=== PATIENT | male | born 1935 | race Caucasian/White ===

== ENCOUNTER → 2016-10-26 | Outpatient (CLI) | payer OTHER ==
[~2016-10-26] MED LIST: ASPI-496 PO; CLOP75TA PO; EMPA10TA PO; GEMF600T3 PO; LISI40TA PO; METF500T4 PO; REGADENOSON 0.4 MG/5 ML SYRINGE ONE; RIVA15TA PO
== END | disposition home or self-care (01) ==
LOC: CFH 08:12
PROVIDERS: ATTEND Internal Medicine Cardiovascular Disease
DX: I48.91 Unspecified atrial fibrillation (principal); I25.10 Atherosclerotic heart disease of native coronary artery without angina pectoris; I10 Essential (primary) hypertension; I45.10 Unspecified right bundle-branch block
CPT/HCPCS: 78452; 93017; A9502; J2785

== ENCOUNTER 2016-10-29 08:28 | Day surgery (SDC) | payer OTHER ==
[2016-10-28 11:05] VITALS: BP 155/89
[2016-10-28 11:20] LABS: HEMATOCRIT 46.4 % (39.2-51.8); HEMOGLOBIN 15.6 g/dL (13.7-18.0); WHITE BLOOD COUNT 4.8 x10^3/uL (3.4-10)
[2016-10-28 12:47] LABS: BLOOD UREA NITROGEN 19 mg/dL (7-18)
[~2016-10-29] VITALS: Ht 175.3 cm; Wt 98.6 kg
[~2016-10-29 08:28] MED LIST changes: -REGADENOSON 0.4 MG/5 ML SYRINGE ONE
[2016-10-29] MEDS ORDERED: FENTANYL PF 100 MCG/2ML ONE (10:48)
[2016-10-29] MEDS ORDERED: MIDAZOLAM 1 MG/ML, 5ML ONE (10:48)
[2016-10-29] MEDS ORDERED: VERAPAMIL 2.5 MG/ML, 2ML ONE (10:49)
[2016-10-29] MEDS ORDERED: BIVALIRUDIN 250 MG ONE (10:49)
[2016-10-29] MEDS ORDERED: LIDOCAINE 2%, 20ML ONE (10:50)
[2016-10-29] MEDS ORDERED: HEPARIN 1,000 UNITS/ML, 10ML ONE (11:24)
[2016-10-29] MEDS ORDERED: ISOS60TA36 PO (12:29)
[2016-10-29] MEDS ORDERED: NITR0.4T28 SL (12:47)
[2016-10-29] MEDS ORDERED: SODIUM CHLORIDE 0.9% 1,000 ML IV SCH (13:00)
== END 2016-10-29 15:19 | disposition home or self-care (01) ==
LOC: CACL 08:28
PROVIDERS: ATTEND Internal Medicine Cardiovascular Disease
DX: I25.10 Atherosclerotic heart disease of native coronary artery without angina pectoris (principal); I25.82 Chronic total occlusion of coronary artery; I10 Essential (primary) hypertension; I73.9 Peripheral vascular disease, unspecified; I48.91 Unspecified atrial fibrillation; E11.9 Type 2 diabetes mellitus without complications; E78.5 Hyperlipidemia, unspecified; Z79.01 Long term (current) use of anticoagulants; Z80.0 Family history of malignant neoplasm of digestive organs; Z87.891 Personal history of nicotine dependence
CPT/HCPCS: 36415; 80048; 85025; 93458; 99156; 99157; C1894; J1644; J2250; J3010; J3490; Q9967; J0583

== ENCOUNTER 2016-12-03 18:18 | Inpatient (IN) | payer OTHER ==
[~2016-12-03] VITALS: Ht 175.3 cm; Wt 97.6 kg
[~2016-12-03 18:18] MED LIST changes: +ISOS60TA36 PO; +NITR0.4T28 SL
[2016-12-03] MEDS ORDERED: SODIUM CHLORIDE FLUSH 10ML SYR IVF ONE (19:00)
[2016-12-03] MEDS ORDERED: SODIUM CHLORIDE 0.9% 1,000ML IVBOLUS ONE ×2 (19:30→20:00)
[2016-12-03 19:33] LABS: HEMATOCRIT 46.6 % (39.2-51.8); HEMOGLOBIN 15.6 g/dL (13.7-18.0); WHITE BLOOD COUNT 11.4 x10^3/uL (3.4-10)
[2016-12-03 19:43] LABS: BLOOD UREA NITROGEN 20 mg/dL (7-18)
[2016-12-03] MEDS ORDERED: ACETAMINOPHEN 500 MG TABLET ONE (19:47)
[2016-12-03 19:49] LABS: IS PT STATUS REG ER OR PRE ER? YES
[2016-12-03] MEDS ORDERED: ACETAMINOPHEN 500 MG TABLET PO ONE (20:00)
[2016-12-03] MEDS ORDERED: DILTIAZEM 5 MG/ML, 5ML IV ONE (20:30)
[2016-12-03 20:50] LABS: PATH.CAST-FLAG NOT PRESENT; SPERM-FLAG NOT PRESENT; SRC-FLAG NOT PRESENT; XTAL-FLAG NOT PRESENT; YLC-FLAG NOT PRESENT
[2016-12-03] MEDS ORDERED: CEFTRIAXONE PMX 1GM/50ML 50 ML ONE (21:07)
[2016-12-03] MEDS ORDERED: SODIUM CHLORIDE 0.9% 1,000 ML IV SCH (21:24)
[2016-12-03] MEDS ORDERED: DEXTROSE 4 GM TAB.CHEW PO PRN (21:30)
[2016-12-03] MEDS ORDERED: GLUCAGON 1 MG IM PRN (21:30)
[2016-12-03] MEDS ORDERED: CEFTRIAXONE PMX 1GM/50ML 50 ML IVPB ONE (21:30)
[2016-12-03] MEDS ORDERED: ACETAMINOPHEN 325 MG TABLET PO PRN (21:30)
[2016-12-03] MEDS ORDERED: ONDANSETRON 2MG/ML, 2ML IVPush PRN (21:30)
[2016-12-03] MEDS ORDERED: SODIUM CHLORIDE FLUSH 10ML SYR IVF PRN (21:30)
[2016-12-03] MEDS ORDERED: NITROGLYCERIN 0.4 MG BOTTLE (25 TABS) SL PRN (21:30)
[2016-12-03] MEDS ORDERED: DEXTROSE 50%, 50ML SYRINGE IVPush PRN (21:30)
[2016-12-03] MEDS ORDERED: LABETALOL 5MG/ML, 20ML IVPush PRN (21:30)
[2016-12-03 22:38] VITALS: BP 136/70
[2016-12-03] MEDS: XARELTO MC SCH (23:30)
[2016-12-04] VITALS (7 sets, daily range): BP systolic 99–175; BP diastolic 42–94
[2016-12-04] MEDS: XARELTO MC SCH (00:04)
[2016-12-04 00:30] LABS: IS PT STATUS REG ER OR PRE ER? NO
[2016-12-04] MEDS: DILTIAZEM 5 MG/ML, 5ML IVPush PRN ×2 (03:02→06:30)
[2016-12-04] MEDS: ASPIRIN 325 MG TABLET EC PO SCH (04:52)
[2016-12-04 05:46] LABS: IS PT STATUS REG ER OR PRE ER? NO
[2016-12-04] MEDS ORDERED: metFORMIN 500 MG TABLET PO SCH (09:00)
[2016-12-04] MEDS: GEMFIBROZIL 600 MG TABLET PO SCH ×2 (10:11→19:43)
[2016-12-04] MEDS: ISOSORBIDE MONONITRATE ER 60 MG TABLET PO SCH (10:11)
[2016-12-04] MEDS: LISINOPRIL 20 MG TABLET PO SCH (10:12)
[2016-12-04] MEDS: CLOPIDOGREL 75 MG TABLET PO SCH (10:12)
[2016-12-04] MEDS: RIVAROXABAN 15 MG TABLET PO SCH (10:14)
[2016-12-04] MEDS: SODIUM CHLORIDE FLUSH 10ML SYR IVF SCH ×2 (10:15→19:43)
[2016-12-04] MEDS ORDERED: DILTIAZEM 5 MG/ML, 5ML IVPush PRN (16:30)
[2016-12-04] MEDS ORDERED: CEFTAROLINE 600 MG in SODIUM CHLORIDE 0.9% 100 ML IV SCH (16:30)
[2016-12-04] MEDS ORDERED: PHARMACOKINETIC CONSULTATION MC ONE (17:00)
[2016-12-04] MEDS ORDERED: VANCOMYCIN PER PHARMACY MC PRN (17:00)
[2016-12-04] MEDS ORDERED: VANCOMYCIN PMX 1GM/200ML 200 ML IV ONE (17:00)
[2016-12-04] MEDS ORDERED: PHARMACOKINETIC MONITORING MC PRN (17:00)
[2016-12-04] MEDS: ERTAPENEM 1 GM in SODIUM CHLORIDE 0.9% 50 ML IV SCH (18:07)
[2016-12-04] MEDS: METOPROLOL TARTRATE 25 MG TABLET PO SCH (18:10)
[2016-12-04] MEDS: VANCOMYCIN 1,900 MG in SODIUM CHLORIDE 0.9% 250 ML IV SCH (19:10)
[2016-12-04] MEDS: morphine SULFATE 10 MG/ML, 1ML IVPush PRN (19:46)
[2016-12-04] MEDS: INSULIN ASPART 100 UNITS/ML, PEN SQ-INSULIN SCH (19:49)
[2016-12-05 02:00] VITALS: BP 117/67
[2016-12-05 04:03] VITALS: BP 117/67
[2016-12-05 04:46] LABS: HEMATOCRIT 36.7 % (39.2-51.8); HEMOGLOBIN 12.2 g/dL (13.7-18.0); WHITE BLOOD COUNT 8.3 x10^3/uL (3.4-10)
[2016-12-05 04:57] LABS: BLOOD UREA NITROGEN 20 mg/dL (7-18)
[2016-12-05 05:01] LABS: IS PT STATUS REG ER OR PRE ER? NO
[2016-12-05] MEDS: ASPIRIN 325 MG TABLET EC PO SCH (05:21)
[2016-12-05] MEDS: METOPROLOL TARTRATE 25 MG TABLET PO SCH ×2 (05:22→17:03)
[2016-12-05] MEDS: INSULIN ASPART 100 UNITS/ML, PEN SQ-INSULIN SCH ×4 (07:00→20:49)
[2016-12-05] MEDS: RIVAROXABAN 15 MG TABLET PO SCH (07:57)
[2016-12-05] MEDS: LISINOPRIL 20 MG TABLET PO SCH (07:57)
[2016-12-05] MEDS: GEMFIBROZIL 600 MG TABLET PO SCH ×2 (07:57→20:48)
[2016-12-05] MEDS: ISOSORBIDE MONONITRATE ER 60 MG TABLET PO SCH (07:58)
[2016-12-05] MEDS: CLOPIDOGREL 75 MG TABLET PO SCH (07:58)
[2016-12-05] MEDS: SODIUM CHLORIDE FLUSH 10ML SYR IVF SCH ×2 (07:59→20:48)
[2016-12-05] MEDS ORDERED: TEMPLATE NON-FORMULARY MED. (Empagliflozin (Jardiance) 10 MG) HOMEMEDPO SCH (09:00)
[2016-12-05] MEDS ORDERED: RIVAROXABAN 15 MG TABLET PO SCH (09:00)
[2016-12-05 09:40] VITALS: BP_SYST 100; BP_SYST 101; BP_DIAS 54; BP_DIAS 61
[2016-12-05 14:58] VITALS: BP 131/74
[2016-12-05] MEDS ORDERED: SODIUM CHLORIDE NASAL SPRAY 45ML BOTTLE NAS PRN ×2 (15:00→16:00)
[2016-12-05] MEDS ORDERED: ONDANSETRON 2MG/ML, 2ML IVPush PRN (16:00)
[2016-12-05] MEDS ORDERED: ACETAMINOPHEN 325 MG TABLET PO PRN (16:00)
[2016-12-05] MEDS ORDERED: LABETALOL 5MG/ML, 20ML IVPush PRN (16:00)
[2016-12-05] MEDS ORDERED: GLUCAGON 1 MG IM PRN (16:00)
[2016-12-05] MEDS ORDERED: VANCOMYCIN PER PHARMACY MC PRN (16:00)
[2016-12-05] MEDS ORDERED: PHARMACOKINETIC MONITORING MC PRN (16:00)
[2016-12-05] MEDS ORDERED: NITROGLYCERIN 0.4 MG BOTTLE (25 TABS) SL PRN (16:00)
[2016-12-05] MEDS: ERTAPENEM 1 GM in SODIUM CHLORIDE 0.9% 50 ML IV SCH (16:26)
[2016-12-05] MEDS: VANCOMYCIN 1,900 MG in SODIUM CHLORIDE 0.9% 250 ML IV SCH (17:03)
[2016-12-05 20:50] VITALS: BP 125/74
[2016-12-05] MEDS: morphine SULFATE 10 MG/ML, 1ML IVPush PRN (20:54)
[2016-12-06 01:40] VITALS: BP 110/63
[2016-12-06 05:20] LABS: BLOOD UREA NITROGEN 17 mg/dL (7-18)
[2016-12-06 06:32] VITALS: BP 133/76
[2016-12-06] MEDS: METOPROLOL TARTRATE 25 MG TABLET PO SCH (06:32)
[2016-12-06] MEDS: ASPIRIN 325 MG TABLET EC PO SCH (06:32)
[2016-12-06] MEDS: INSULIN ASPART 100 UNITS/ML, PEN SQ-INSULIN SCH ×3 (07:00→16:00)
[2016-12-06] MEDS: GEMFIBROZIL 600 MG TABLET PO SCH (09:09)
[2016-12-06] MEDS: LISINOPRIL 20 MG TABLET PO SCH (09:09)
[2016-12-06] MEDS: RIVAROXABAN 15 MG TABLET PO SCH (09:09)
[2016-12-06] MEDS: CLOPIDOGREL 75 MG TABLET PO SCH (09:10)
[2016-12-06] MEDS: SODIUM CHLORIDE FLUSH 10ML SYR IVF SCH (09:10)
[2016-12-06] MEDS: ISOSORBIDE MONONITRATE ER 60 MG TABLET PO SCH (09:10)
[2016-12-06 13:54] VITALS: BP 104/65
[2016-12-06] MEDS ORDERED: CEPH-368 PO (14:33)
[2016-12-06] MEDS ORDERED: TRAM50TA2 PO (14:33)
[2016-12-06] MEDS ORDERED: RIVA15TA PO (14:33)
[2016-12-06] MEDS ORDERED: METO25TA35 PO (14:33)
[2016-12-06] MEDS ORDERED: ASPI-621 PO (14:33)
== END 2016-12-06 17:25 | disposition home or self-care (01) | DRG 300 ==
LOC: ED 20:57 → SUATTDRO 21:22 → EDIP 21:24 → 5SO 22:30
PROVIDERS: ADMIT Hospitalist; ATTEND Hospitalist
DX: E11.51 Type 2 diabetes mellitus with diabetic peripheral angiopathy without gangrene (principal); L03.115 Cellulitis of right lower limb; D68.69 Other thrombophilia; I48.2 Chronic atrial fibrillation; E78.5 Hyperlipidemia, unspecified; G89.29 Other chronic pain; I10 Essential (primary) hypertension; I25.10 Atherosclerotic heart disease of native coronary artery without angina pectoris; Z79.01 Long term (current) use of anticoagulants; Z79.899 Other long term (current) drug therapy; Z87.891 Personal history of nicotine dependence; Z88.0 Allergy status to penicillin; Z95.5 Presence of coronary angioplasty implant and graft
CPT/HCPCS: 36415; 71010; 80048; 80061; 81001; 82040; 82306; 82565; 82607; 82962; 83605; 83735; 83880; 84145; 84439; 84443; 84484; 85025; 85610; 87040; 93005; 93922; 93925; 93978; 96361; 96365; J0696; J1335; J1815; J3370; J2270; J7030; J7050

== ENCOUNTER → 2017-07-18 | Outpatient (CLI) | payer OTHER ==
[~2017-07-18] MED LIST changes: +ASPI-621 PO; +CEPH-368 PO; +METO25TA35 PO; +TRAM50TA2 PO
== END ==
LOC: CFH 09:24
PROVIDERS: ATTEND Internal Medicine Cardiovascular Disease
DX: I07.1 Rheumatic tricuspid insufficiency (principal); I35.0 Nonrheumatic aortic (valve) stenosis
CPT/HCPCS: 93306

== ENCOUNTER → 2018-01-23 | Outpatient (CLI) | payer OTHER ==
[~2018-01-23] MED LIST changes: -ASPI-621 PO; +ASPI81TA45 PO; -GEMF600T3 PO; +GEMF600T4 PO; +METF500T17 PO; -METF500T4 PO
== END | disposition home or self-care (01) ==
LOC: CVU 08:00
PROVIDERS: ATTEND Internal Medicine Cardiovascular Disease
DX: I65.23 Occlusion and stenosis of bilateral carotid arteries (principal); R42 Dizziness and giddiness; E11.9 Type 2 diabetes mellitus without complications; I10 Essential (primary) hypertension; E78.5 Hyperlipidemia, unspecified; Z87.891 Personal history of nicotine dependence; I48.91 Unspecified atrial fibrillation
CPT/HCPCS: 93880

== ENCOUNTER 2018-03-11 14:53 | Emergency (ER) | payer MEDICARE, OTHER ==
[~2018-03-11] VITALS: Ht 172.7 cm; Wt 92.6 kg
[~2018-03-11 14:53] MED LIST changes: -GEMF600T4 PO; +GEMF600T8 PO
--- NOTE | 2018-03-11 15:00 | NUR ---
FIRST CONTACT WITH PT. PT C/O NOSEBLEED STARTING AROUND 9AM TODAY. PT DENIES DIZZYNESS/N/V/D/PAIN AT THIS TIME. PT TAKING XARELTO AND PLAVIX. PT'S DAUGHTER AT BEDSIDE. BP/SPO2 MONITORS IN PLACE. CALL LIGHT WITHIN REACH.
[2018-03-11] MEDS ORDERED: PHENYLEPHRINE NASAL 1%, 15ML SPRAY ONE (15:20)
--- NOTE | 2018-03-11 15:20 | NUR ---
late entry for 1520 d/t patient care: verbal order received for neosynephrine nasal spray 1%. medical manager by elizabeth goldstein, charted by this rn by proxy.
--- NOTE | 2018-03-11 15:22 | NUR ---
MOISÉS KNAPP AT BEDSIDE TO EVALUATE PT.
[2018-03-11 16:01] LABS: BASOPHILS # (AUTO) 0.04 x10^3/uL (0-0.1); BASOPHILS % (AUTO) 1 % (0-1); EOSINOPHILS # (AUTO) 0.43 x10^3/uL (0-0.4); EOSINOPHILS % (AUTO) 7 % (1-7); LYMPHOCYTES # (AUTO) 1.06 x10^3/uL (1-3.4); LYMPHOCYTES % (AUTO) 18 % (22-44); MD NO; MEAN CORPUSCULAR HEMOGLOBIN 29.4 pg (27.5-34.5); MEAN CORPUSCULAR HGB CONC 32.6 g/dL (33.2-36.2); MEAN CORPUSCULAR VOLUME 90.1 fL (81-97); MEAN PLATELET VOLUME 7.1 fL (7.4-10.4); MONOCYTES # (AUTO) 0.56 x10^3/uL (0.2-0.8); MONOCYTES % (AUTO) 10 % (2-9); NEUTROPHILS # (AUTO) 3.81 x10^3/uL (1.8-6.8); NEUTROPHILS % (AUTO) 65 % (42-75); PLATELET COUNT 254 x10^3/uL (130-400); RED BLOOD COUNT 3.96 x10^6/uL (4.38-5.82); RED CELL DISTRIBUTION WIDTH 17.3 % (9.4-14.8)
[2018-03-11 16:09] LABS: INTERNATIONAL NORMALIZED RATIO 1.34 (0.93-1.1)
[2018-03-11 16:12] LABS: ALBUMIN 3.6 g/dL (3.4-5.0); ANION GAP 9 mmol/L (5-15); CALCIUM 9.2 mg/dL (8.5-10.1); CHLORIDE 108 mmol/L (98-107); CREATININE 0.89 mg/dL (0.7-1.3)
[2018-03-11 16:15] VITALS: BP 123/54
--- NOTE | 2018-03-11 16:17 | NUR ---
EDMD AT BEDSIDE TO EXPLAIN ALL RESULTS. AWAITING DC AT THIS TIME.
--- NOTE | 2018-03-11 16:33 | NUR ---
PT GIVEN DC INSTRUCTIONS. PT AOX4. RESPS EVEN AND UNLABORED. NOSE BLEED RESOLVED AT DC. PT AMB TO DC WITH STEADY GAIT. NO ACUTE DISTRESS AT DC.
[2018-03-11] MEDS ORDERED: PHENYLEPHRINE NASAL 1%, 15ML SPRAY NAS ONE (17:00)
== END 2018-03-11 16:31 | disposition home or self-care (01) ==
LOC: ED 16:08
DX: R04.0 Epistaxis (principal); I25.2 Old myocardial infarction; I48.91 Unspecified atrial fibrillation; E11.9 Type 2 diabetes mellitus without complications; I10 Essential (primary) hypertension; I25.10 Atherosclerotic heart disease of native coronary artery without angina pectoris
CPT/HCPCS: 30901; 36415; 80048; 82040; 85025; 85610; 99284

== ENCOUNTER → 2019-11-12 | Outpatient (CLI) | payer MEDICARE | END | disposition home or self-care (01) | LOC: CVU 10:19 | PROVIDERS: ATTEND Internal Medicine Cardiovascular Disease | DX: I65.23 Occlusion and stenosis of bilateral carotid arteries (principal); I10 Essential (primary) hypertension; E11.9 Type 2 diabetes mellitus without complications; Z87.891 Personal history of nicotine dependence | CPT/HCPCS: 93880 ==